=== PATIENT | male | born 1950 | race Caucasian/White ===

== ENCOUNTER 2017-09-03 11:53 | Inpatient (IN) | payer MEDICARE ==
[~2017-09-03] VITALS: Ht 177.8 cm; Wt 85.1 kg
[2017-09-03 14:00] VITALS: BP 134/80
[2017-09-03] MEDS ORDERED: PLEASE ENTER ALLERGIES MC SCH (15:00)
[2017-09-03] MEDS ORDERED: ACETAMINOPHEN 325 MG TABLET PO PRN (15:00)
[2017-09-03] MEDS ORDERED: MECLIZINE CHEWABLE 25 MG TAB PO PRN (15:00)
[2017-09-03] MEDS ORDERED: PLEASE ENTER HEIGHT AND WEIGHT MC SCH (15:00)
[2017-09-03 15:38] LABS: BASOPHILS # (AUTO) 0.08 x10^3/uL (0-0.1); BASOPHILS % (AUTO) 1 % (0-1); EOSINOPHILS # (AUTO) 0.11 x10^3/uL (0-0.4); EOSINOPHILS % (AUTO) 1 % (1-7); LYMPHOCYTES # (AUTO) 1.37 x10^3/uL (1-3.4); LYMPHOCYTES % (AUTO) 11 % (22-44); MD NO; MEAN CORPUSCULAR HEMOGLOBIN 31.6 pg (27.5-34.5); MEAN CORPUSCULAR HGB CONC 33.7 g/dL (33.2-36.2); MEAN CORPUSCULAR VOLUME 93.6 fL (81-97); MEAN PLATELET VOLUME 9.9 fL (7.4-10.4); MONOCYTES # (AUTO) 0.81 x10^3/uL (0.2-0.8); MONOCYTES % (AUTO) 6 % (2-9); NEUTROPHILS # (AUTO) 10.28 x10^3/uL (1.8-6.8); NEUTROPHILS % (AUTO) 81 % (42-75); PLATELET COUNT 238 x10^3/uL (130-400); RED BLOOD COUNT 5.02 x10^6/uL (4.38-5.82); RED CELL DISTRIBUTION WIDTH 12.9 % (9.4-14.8)
[2017-09-03 15:50] LABS: ALBUMIN 3.1 g/dL (3.4-5.0); ANION GAP 8 mmol/L (5-15); CALCIUM 8.7 mg/dL (8.5-10.1); CHLORIDE 106 mmol/L (98-107)
[2017-09-03 16:19] LABS: ALANINE AMINOTRANSFERASE 17 U/L (12-78); ALKALINE PHOSPHATASE 101 U/L (45-117); BILIRUBIN,TOTAL 0.4 mg/dL (0.2-1.0); CREATININE 0.89 mg/dL (0.7-1.3); FOLATE LEVEL 15.9 ng/mL (3.1-17.5); FREE T4 (FREE THYROXINE) 0.78 ng/dL (0.76-1.46); TOTAL PROTEIN 7.2 g/dL (6.4-8.2)
[2017-09-03 17:06] LABS: HEMOGLOBIN A1C 10.5 % (4.2-6.3)
[2017-09-03] MEDS: SODIUM CHLORIDE 0.9% 1,000 ML IV SCH (17:10)
[2017-09-03 19:49] VITALS: BP 114/70
[2017-09-03] MEDS: DOCUSATE 100 MG CAPSULE PO SCH (21:26)
[2017-09-03] MEDS: INSULIN LISPRO 100 UNITS/ML, PEN SQ-INSULIN SCH (21:26)
[2017-09-03] MEDS: ENOXAPARIN 40 MG/0.4 ML SQ SCH (21:26)
[2017-09-04 00:32] VITALS: BP 124/73
[2017-09-04 05:52] LABS: CULTURE INDICATED? YES; MICROSCOPIC INDICATED
[2017-09-04 07:35] VITALS: BP 136/77
[2017-09-04] MEDS: POLYETHYLENE GLYCOL 17 GM PACKET PO SCH (08:04)
[2017-09-04] MEDS: DOCUSATE 100 MG CAPSULE PO SCH ×2 (08:11→21:00)
[2017-09-04] MEDS: SODIUM CHLORIDE 0.9% 1,000 ML IV SCH (08:11)
[2017-09-04] MEDS: INSULIN LISPRO 100 UNITS/ML, PEN SQ-INSULIN SCH ×4 (08:11→21:00)
[2017-09-04 13:52] VITALS: BP 131/72
[2017-09-04 19:45] VITALS: BP 159/90
[2017-09-04] MEDS: ENOXAPARIN 40 MG/0.4 ML SQ SCH (20:59)
[2017-09-05 02:01] VITALS: BP 146/76
[2017-09-05 06:03] LABS: BASOPHILS # (AUTO) 0.03 x10^3/uL (0-0.1); BASOPHILS % (AUTO) 0 % (0-1); EOSINOPHILS # (AUTO) 0.57 x10^3/uL (0-0.4); EOSINOPHILS % (AUTO) 7 % (1-7); LYMPHOCYTES # (AUTO) 1.41 x10^3/uL (1-3.4); LYMPHOCYTES % (AUTO) 18 % (22-44); MD NO; MEAN CORPUSCULAR HEMOGLOBIN 31.1 pg (27.5-34.5); MEAN CORPUSCULAR HGB CONC 33.1 g/dL (33.2-36.2); MEAN CORPUSCULAR VOLUME 94.1 fL (81-97); MEAN PLATELET VOLUME 9.8 fL (7.4-10.4); MONOCYTES # (AUTO) 0.76 x10^3/uL (0.2-0.8); MONOCYTES % (AUTO) 10 % (2-9); NEUTROPHILS # (AUTO) 5.05 x10^3/uL (1.8-6.8); NEUTROPHILS % (AUTO) 65 % (42-75); PLATELET COUNT 240 x10^3/uL (130-400); RED BLOOD COUNT 4.87 x10^6/uL (4.38-5.82); RED CELL DISTRIBUTION WIDTH 13.3 % (9.4-14.8)
[2017-09-05 06:07] LABS: ANION GAP 9 mmol/L (5-15); CALCIUM 8.6 mg/dL (8.5-10.1); CHLORIDE 107 mmol/L (98-107)
[2017-09-05 06:09] LABS: CREATININE 0.87 mg/dL (0.7-1.3)
[2017-09-05 08:00] VITALS: BP 151/88
[2017-09-05] MEDS: POLYETHYLENE GLYCOL 17 GM PACKET PO SCH (09:00)
[2017-09-05] MEDS: DOCUSATE 100 MG CAPSULE PO SCH ×2 (09:00→21:02)
[2017-09-05] MEDS: INSULIN LISPRO 100 UNITS/ML, PEN SQ-INSULIN SCH ×4 (09:06→21:05)
[2017-09-05] MEDS: METOPROLOL TARTRATE 25 MG TABLET PO SCH ×2 (09:54→18:21)
[2017-09-05 12:46] VITALS: BP 136/79
[2017-09-05] MEDS: metFORMIN 500 MG TABLET PO SCH (16:23)
[2017-09-05 18:50] VITALS: BP 133/79
[2017-09-05] MEDS: ENOXAPARIN 40 MG/0.4 ML SQ SCH (21:05)
[2017-09-06 01:34] VITALS: BP 142/85
[2017-09-06] MEDS: METOPROLOL TARTRATE 25 MG TABLET PO SCH ×2 (06:25→17:44)
[2017-09-06 06:48] VITALS: BP 125/83
[2017-09-06] MEDS: INSULIN LISPRO 100 UNITS/ML, PEN SQ-INSULIN SCH ×4 (08:36→20:34)
[2017-09-06] MEDS: metFORMIN 500 MG TABLET PO SCH ×2 (08:37→17:41)
[2017-09-06] MEDS: POLYETHYLENE GLYCOL 17 GM PACKET PO SCH (08:41)
[2017-09-06] MEDS: DOCUSATE 100 MG CAPSULE PO SCH ×2 (08:41→20:32)
[2017-09-06 13:09] VITALS: BP 120/66
[2017-09-06 19:06] VITALS: BP 150/80
[2017-09-06] MEDS: ENOXAPARIN 40 MG/0.4 ML SQ SCH (20:34)
[2017-09-07 00:35] VITALS: BP 147/82
[2017-09-07] MEDS: METOPROLOL TARTRATE 25 MG TABLET PO SCH ×2 (06:02→17:09)
[2017-09-07 06:51] VITALS: BP 126/77
[2017-09-07] MEDS: DOCUSATE 100 MG CAPSULE PO SCH ×2 (07:34→20:42)
[2017-09-07] MEDS: POLYETHYLENE GLYCOL 17 GM PACKET PO SCH (07:35)
[2017-09-07] MEDS: metFORMIN 500 MG TABLET PO SCH ×2 (07:39→17:10)
[2017-09-07] MEDS: INSULIN LISPRO 100 UNITS/ML, PEN SQ-INSULIN SCH ×4 (07:40→21:14)
[2017-09-07] MEDS ORDERED: POLYETHYLENE GLYCOL 17 GM PACKET PO PRN (12:00)
[2017-09-07 13:33] VITALS: BP 117/67
[2017-09-07 20:10] VITALS: BP 130/67
[2017-09-07] MEDS: ENOXAPARIN 40 MG/0.4 ML SQ SCH (21:15)
[2017-09-08 01:34] VITALS: BP 113/63
[2017-09-08] MEDS: METOPROLOL TARTRATE 25 MG TABLET PO SCH ×2 (05:47→17:39)
[2017-09-08 06:38] VITALS: BP 108/71
[2017-09-08] MEDS: INSULIN LISPRO 100 UNITS/ML, PEN SQ-INSULIN SCH ×4 (08:35→20:29)
[2017-09-08] MEDS: metFORMIN 500 MG TABLET PO SCH ×2 (08:35→17:39)
[2017-09-08] MEDS: DOCUSATE 100 MG CAPSULE PO SCH ×2 (08:36→20:29)
[2017-09-08] MEDS ORDERED: FLU VACC QS2017-18 (36MOS+) UP/PF 0.5 ML IM-VACC ONE (10:00)
[2017-09-08 12:35] VITALS: BP 122/82
[2017-09-08] MEDS ORDERED: ACYC-114 PO (13:51)
[2017-09-08] MEDS ORDERED: METF500T4 PO (13:52)
[2017-09-08] MEDS ORDERED: MECL-76 PO (13:54)
[2017-09-08] MEDS ORDERED: SIMV20TA3 PO (13:56)
[2017-09-08] MEDS ORDERED: LISI-420 PO (13:56)
[2017-09-08] MEDS ORDERED: ASPI-650 PO (13:57)
[2017-09-08 19:25] VITALS: BP 113/85
[2017-09-08] MEDS: ENOXAPARIN 40 MG/0.4 ML SQ SCH (20:29)
[2017-09-09 01:39] VITALS: BP 153/85
[2017-09-09] MEDS: METOPROLOL TARTRATE 25 MG TABLET PO SCH ×2 (05:46→17:06)
[2017-09-09] MEDS: DOCUSATE 100 MG CAPSULE PO SCH (07:27)
[2017-09-09 07:30] VITALS: BP 129/74
[2017-09-09] MEDS: INSULIN LISPRO 100 UNITS/ML, PEN SQ-INSULIN SCH ×3 (07:35→16:00)
[2017-09-09] MEDS: metFORMIN 500 MG TABLET PO SCH ×2 (07:35→17:06)
[2017-09-09] MEDS ORDERED: METF1000 PO (14:16)
[2017-09-09] MEDS ORDERED: ASPI-650 PO (14:16)
[2017-09-09] MEDS ORDERED: MECL-85 PO (14:16)
[2017-09-09] MEDS ORDERED: SIMV20TA3 PO (14:16)
[2017-09-09] MEDS ORDERED: ACYC-114 PO (14:16)
[2017-09-09] MEDS ORDERED: METO25TA35 PO (14:16)
[2017-09-09] MEDS ORDERED: GLIP5TAB10 PO (14:16)
[2017-09-09] MEDS ORDERED: DOCU-131 PO (14:16)
[2017-09-09 16:40] VITALS: BP 137/80
== END 2017-09-09 17:49 | disposition home health service (06) | DRG 641 ==
LOC: 3NE 12:33
PROVIDERS: ADMIT Internal Medicine; ATTEND Internal Medicine
DX: R62.7 Adult failure to thrive (principal); E44.1 Mild protein-calorie malnutrition; J98.4 Other disorders of lung; E11.9 Type 2 diabetes mellitus without complications; R42 Dizziness and giddiness; Z79.84 Long term (current) use of oral hypoglycemic drugs; E87.6 Hypokalemia; K59.00 Constipation, unspecified; E78.5 Hyperlipidemia, unspecified; I10 Essential (primary) hypertension; Z79.82 Long term (current) use of aspirin; Z79.899 Other long term (current) drug therapy; Z82.49 Family history of ischemic heart disease and other diseases of the circulatory system; Z86.19 Personal history of other infectious and parasitic diseases; Z87.730 Personal history of (corrected) cleft lip and palate; Z98.2 Presence of cerebrospinal fluid drainage device; Z68.37 Body mass index [BMI] 37.0-37.9, adult
CPT/HCPCS: 36415; 71045; 80048; 80053; 81001; 82306; 82607; 82746; 82962; 83036; 84439; 84443; 85025; 87086; 90686; J1650; J1815; J7030

== ENCOUNTER 2017-11-20 15:08 | Inpatient (IN) | payer MEDICARE ==
[~2017-11-20] VITALS: Ht 175.3 cm; Wt 114.9 kg
[~2017-11-20 15:08] MED LIST: ACYC-114 PO; ASPI-650 PO; DOCU-131 PO; GLIP5TAB10 PO; LISI-420 PO; MECL-76 PO; MECL-85 PO; METF1000 PO; METF500T4 PO; METO25TA35 PO; SIMV20TA3 PO
[2017-11-20] MEDS ORDERED: TICAGRELOR 90 MG TABLET ONE (15:15)
[2017-11-20] MEDS ORDERED: FENTANYL PF 100 MCG/2ML ONE (15:15)
[2017-11-20] MEDS ORDERED: MIDAZOLAM 1 MG/ML, 5ML ONE (15:15)
[2017-11-20] MEDS ORDERED: LIDOCAINE 2%, 2ML ONE (15:16)
[2017-11-20] MEDS ORDERED: HEPARIN 1,000 UNITS/ML, 10ML ONE (15:16)
[2017-11-20] MEDS ORDERED: VERAPAMIL 2.5 MG/ML, 2ML ONE (15:16)
[2017-11-20] MEDS ORDERED: BIVALIRUDIN 250 MG ONE (15:16)
[2017-11-20] MEDS ORDERED: LIDOCAINE-MPF 2% ,5ML ONE (15:31)
[2017-11-20] MEDS ORDERED: SODIUM CHLORIDE 0.9% 1,000 ML IV SCH (16:12)
[2017-11-20] MEDS ORDERED: PHENYLEPHRINE 10 MG/ML ONE (16:24)
[2017-11-20] MEDS ORDERED: ACETAMINOPHEN 325 MG TABLET PO PRN (16:30)
[2017-11-20] MEDS ORDERED: ONDANSETRON 2MG/ML, 2ML IVPush PRN (16:30)
[2017-11-20] MEDS ORDERED: BISACODYL 5 MG EC TABLET PO PRN (16:30)
[2017-11-20] MEDS: ATORVASTATIN 80 MG TABLET PO SCH (20:59)
[2017-11-20] MEDS: TICAGRELOR 90 MG TABLET PO SCH (20:59)
[2017-11-21] VITALS (8 sets, daily range): BP systolic 63–124; BP diastolic 52–76
[2017-11-21 04:41] LABS: CHLORIDE 108 mmol/L (98-107)
[2017-11-21 04:45] LABS: ALBUMIN 3.1 g/dL (3.4-5.0); ANION GAP 9 mmol/L (5-15); CALCIUM 9.2 mg/dL (8.5-10.1); CREATININE 1.08 mg/dL (0.7-1.3)
[2017-11-21] MEDS: TICAGRELOR 90 MG TABLET PO SCH ×2 (08:46→19:59)
[2017-11-21] MEDS: ASPIRIN 81 MG TABLET EC PO SCH (08:46)
[2017-11-21] MEDS ORDERED: MECLIZINE CHEWABLE 25 MG TAB PO PRN (09:00)
[2017-11-21] MEDS: ACYCLOVIR 400 MG TABLET PO SCH (11:11)
[2017-11-21] MEDS ORDERED: SODIUM CHLORIDE 0.9%, 250ML IVBOLUS ONE (11:30)
[2017-11-21] MEDS ORDERED: SODIUM CHLORIDE 0.9% 1,000 ML IV SCH (15:00)
[2017-11-21] MEDS: ATORVASTATIN 80 MG TABLET PO SCH (19:59)
[2017-11-22] VITALS (9 sets, daily range): BP systolic 68–127; BP diastolic 44–75
[2017-11-22] MEDS: TICAGRELOR 90 MG TABLET PO SCH ×2 (09:13→20:07)
[2017-11-22] MEDS: ACYCLOVIR 400 MG TABLET PO SCH (09:13)
[2017-11-22] MEDS: ASPIRIN 81 MG TABLET EC PO SCH (09:13)
[2017-11-22] MEDS: ATORVASTATIN 80 MG TABLET PO SCH (20:07)
[2017-11-23 02:06] VITALS: BP 118/61
[2017-11-23 05:49] LABS: ANION GAP 8 mmol/L (5-15); CALCIUM 8.5 mg/dL (8.5-10.1); CHLORIDE 109 mmol/L (98-107)
[2017-11-23 05:52] LABS: HEMOGLOBIN A1C 7.8 % (4.2-6.3)
[2017-11-23 07:50] VITALS: BP 124/76
[2017-11-23] MEDS: ACYCLOVIR 400 MG TABLET PO SCH (08:22)
[2017-11-23] MEDS: TICAGRELOR 90 MG TABLET PO SCH ×2 (08:22→22:38)
[2017-11-23] MEDS: ASPIRIN 81 MG TABLET EC PO SCH (08:22)
[2017-11-23] MEDS ORDERED: HEPARIN 25,000 UNITS/500ML PMX 500 ML IV PRN (09:00)
[2017-11-23] MEDS: [UNRECOGNIZED DRUG - REMARK] MC SCH ×2 (09:49→17:30)
[2017-11-23] MEDS ORDERED: HEPARIN 5,000 UNITS/ML, 1ML IV ONE (10:00)
[2017-11-23] MEDS: METOPROLOL TARTRATE 25 MG TABLET PO SCH ×2 (10:06→22:38)
[2017-11-23] MEDS: HEPARIN 25,000 UNITS/500ML PMX 500 ML IV PRN (10:36)
[2017-11-23 14:24] VITALS: BP 108/70
[2017-11-23] MEDS: HEPARIN 5,000 UNITS/ML, 1ML IV PRN (18:04)
[2017-11-23 20:35] VITALS: BP 130/83
[2017-11-23 20:36] VITALS: BP 120/57
[2017-11-23 20:37] VITALS: BP 96/66
[2017-11-23] MEDS: ATORVASTATIN 80 MG TABLET PO SCH (22:38)
[2017-11-24] VITALS (7 sets, daily range): BP systolic 98–163; BP diastolic 65–80
[2017-11-24] MEDS: METOPROLOL TARTRATE 25 MG TABLET PO SCH ×2 (06:24→17:01)
[2017-11-24] MEDS: HEPARIN 25,000 UNITS/500ML PMX 500 ML IV PRN (08:31)
[2017-11-24] MEDS: HEPARIN 5,000 UNITS/ML, 1ML IV PRN ×2 (08:32→21:44)
[2017-11-24] MEDS: ASPIRIN 81 MG TABLET EC PO SCH (08:32)
[2017-11-24] MEDS: ACYCLOVIR 400 MG TABLET PO SCH (08:32)
[2017-11-24] MEDS: TICAGRELOR 90 MG TABLET PO SCH ×2 (08:32→20:24)
[2017-11-24] MEDS: ATORVASTATIN 80 MG TABLET PO SCH (20:24)
[2017-11-25] VITALS (7 sets, daily range): BP systolic 114–174; BP diastolic 68–115
[2017-11-25] MEDS: HEPARIN 25,000 UNITS/500ML PMX 500 ML IV PRN (01:11)
[2017-11-25] MEDS: METOPROLOL TARTRATE 25 MG TABLET PO SCH (07:25)
[2017-11-25] MEDS: ASPIRIN 81 MG TABLET EC PO SCH (09:10)
[2017-11-25] MEDS: ACYCLOVIR 400 MG TABLET PO SCH (09:10)
[2017-11-25] MEDS ORDERED: PRASUGREL 10 MG TABLET PO SCH (09:30)
[2017-11-25] MEDS: METOPROLOL TARTRATE 50 MG TABLET PO SCH (18:09)
[2017-11-25] MEDS: metFORMIN 500 MG TABLET PO SCH (18:09)
[2017-11-25] MEDS ORDERED: METOPROLOL 1 MG/ML, 5ML IVPush ONE (18:30)
[2017-11-25] MEDS: APIXABAN 5 MG TABLET PO SCH (22:07)
[2017-11-25] MEDS: ATORVASTATIN 80 MG TABLET PO SCH (22:07)
[2017-11-26 00:12] VITALS: BP 110/68
[2017-11-26 05:23] LABS: BASOPHILS # (AUTO) 0.03 x10^3/uL (0-0.1); BASOPHILS % (AUTO) 0 % (0-1); EOSINOPHILS # (AUTO) 0.79 x10^3/uL (0-0.4); EOSINOPHILS % (AUTO) 7 % (1-7); LYMPHOCYTES % (AUTO) 15 % (22-44); MD NO; MEAN CORPUSCULAR HEMOGLOBIN 31.4 pg (27.5-34.5); MEAN CORPUSCULAR HGB CONC 33.5 g/dL (33.2-36.2); MEAN CORPUSCULAR VOLUME 93.9 fL (81-97); MEAN PLATELET VOLUME 9.3 fL (7.4-10.4); MONOCYTES # (AUTO) 1.14 x10^3/uL (0.2-0.8); MONOCYTES % (AUTO) 11 % (2-9); NEUTROPHILS # (AUTO) 7.18 x10^3/uL (1.8-6.8); NEUTROPHILS % (AUTO) 67 % (42-75); PLATELET COUNT 303 x10^3/uL (130-400); RED BLOOD COUNT 4.65 x10^6/uL (4.38-5.82); RED CELL DISTRIBUTION WIDTH 13.8 % (9.4-14.8)
[2017-11-26 05:34] LABS: ANION GAP 9 mmol/L (5-15); CHLORIDE 108 mmol/L (98-107)
[2017-11-26 05:41] LABS: CREATININE 0.84 mg/dL (0.7-1.3)
[2017-11-26 06:15] VITALS: BP_SYST 106; BP_SYST 98; BP_DIAS 65
[2017-11-26] MEDS: METOPROLOL TARTRATE 50 MG TABLET PO SCH (06:22)
[2017-11-26 07:21] VITALS: BP 115/67
[2017-11-26] MEDS: metFORMIN 500 MG TABLET PO SCH (07:28)
[2017-11-26] MEDS: ACYCLOVIR 400 MG TABLET PO SCH (07:28)
[2017-11-26] MEDS: APIXABAN 5 MG TABLET PO SCH (07:28)
[2017-11-26] MEDS ORDERED: CLOPIDOGREL 75 MG TABLET PO SCH (09:00)
[2017-11-26] MEDS ORDERED: CLOP75TA PO (09:37)
[2017-11-26] MEDS ORDERED: APIX5TAB PO (09:37)
[2017-11-26] MEDS ORDERED: METO50TA82 PO (09:37)
[2017-11-26] MEDS ORDERED: ATOR-2 PO (09:37)
[2017-11-26 12:37] LABS: CLOSTRIDIUM DIFFICILE ANTIGEN NEGATIVE; CLOSTRIDIUM DIFFICILE TOXIN NEGATIVE (Negative)
[2017-11-26 14:00] VITALS: BP 107/73
== END 2017-11-26 16:33 | disposition home or self-care (01) | DRG 247 ==
LOC: ED 15:22 → EDIP 15:27 → CCU 16:16 → 5SO 11-21 12:20 → DCLOUNGE 11-26 16:33
PROVIDERS: ADMIT Internal Medicine Cardiovascular Disease; ATTEND Internal Medicine Cardiovascular Disease
PROC: 027034Z Dilation of Coronary Artery, One Artery with Drug-eluting Intraluminal Device, Percutaneous Approach (ICD-10-PCS; principal; 2017-11-20)
PROC: 4A023N7 Measurement of Cardiac Sampling and Pressure, Left Heart, Percutaneous Approach (ICD-10-PCS; 2017-11-20)
PROC: B2111ZZ Fluoroscopy of Multiple Coronary Arteries using Low Osmolar Contrast (ICD-10-PCS; 2017-11-20)
PROC: B2151ZZ Fluoroscopy of Left Heart using Low Osmolar Contrast (ICD-10-PCS; 2017-11-20)
DX: I21.19 ST elevation (STEMI) myocardial infarction involving other coronary artery of inferior wall (principal); D68.69 Other thrombophilia; I48.0 Paroxysmal atrial fibrillation; E11.9 Type 2 diabetes mellitus without complications; E66.9 Obesity, unspecified; I45.5 Other specified heart block; E78.5 Hyperlipidemia, unspecified; I10 Essential (primary) hypertension; I25.2 Old myocardial infarction; Z87.891 Personal history of nicotine dependence; Z98.2 Presence of cerebrospinal fluid drainage device; Z68.37 Body mass index [BMI] 37.0-37.9, adult
CPT/HCPCS: 36415; 71045; 80047; 80048; 82040; 83036; 83880; 84484; 85014; 85018; 85025; 85520; 87081; 87324; 93005; 93306; 93458; 99156; 99157; 99285; C1760; C1769; C1894; J0583; J1644; J2250; J2405; J3010; J3490; C1725; C1874; C1887; J2370; J7030; J7050; Q9967

== ENCOUNTER 2018-07-19 14:45 | Inpatient (IN) | payer MEDICARE ==
[~2018-07-19] VITALS: Ht 170.2 cm; Wt 116.9 kg
[~2018-07-19 14:45] MED LIST changes: +APIX5TAB PO; +ATOR-2 PO; +CLOP75TA PO; +METF500T17 PO; -METF500T4 PO; +METO50TA82 PO
[2018-07-19] MEDS ORDERED: SODIUM CHLORIDE 0.9% 1,000 ML IV ONE (14:54)
[2018-07-19] MEDS ORDERED: METOCLOPRAMIDE 5 MG/ML, 2ML IVPush ONE (15:00)
[2018-07-19] MEDS ORDERED: SODIUM CHLORIDE FLUSH 10ML SYR IVF ONE (15:00)
[2018-07-19 15:13] LABS: PH, VENOUS 7.427 pH (7.320-7.420)
[2018-07-19 15:18] LABS: BASOPHILS # (AUTO) 0.04 x10^3/uL (0-0.1); BASOPHILS % (AUTO) 0 % (0-1); EOSINOPHILS # (AUTO) 0.19 x10^3/uL (0-0.4); EOSINOPHILS % (AUTO) 2 % (1-7); LYMPHOCYTES # (AUTO) 1.18 x10^3/uL (1-3.4); LYMPHOCYTES % (AUTO) 10 % (22-44); MD NO; MEAN CORPUSCULAR HEMOGLOBIN 31.5 pg (27.5-34.5); MEAN CORPUSCULAR HGB CONC 33.5 g/dL (33.2-36.2); MEAN CORPUSCULAR VOLUME 93.9 fL (81-97); MEAN PLATELET VOLUME 10.1 fL (7.4-10.4); MONOCYTES # (AUTO) 0.75 x10^3/uL (0.2-0.8); MONOCYTES % (AUTO) 7 % (2-9); NEUTROPHILS # (AUTO) 9.43 x10^3/uL (1.8-6.8); NEUTROPHILS % (AUTO) 81 % (42-75); PLATELET COUNT 245 x10^3/uL (130-400); RED CELL DISTRIBUTION WIDTH 13.4 % (9.4-14.8)
[2018-07-19 15:25] LABS: ALBUMIN 3.1 g/dL (3.4-5.0); ANION GAP 9 mmol/L (5-15); CALCIUM 8.7 mg/dL (8.5-10.1); CHLORIDE 107 mmol/L (98-107)
[2018-07-19 15:29] LABS: ALANINE AMINOTRANSFERASE 18 U/L (12-78); ALKALINE PHOSPHATASE 104 U/L (45-117); BILIRUBIN,TOTAL 0.6 mg/dL (0.2-1.0); CREATININE 0.94 mg/dL (0.7-1.3)
[2018-07-19] MEDS ORDERED: MECLIZINE CHEWABLE 25 MG TAB PO ONE ×2 (15:30→21:00)
[2018-07-19 15:44] LABS: ACETONE, SERUM Trace (10mg/dL) mg/dL (Negative)
[2018-07-19] MEDS ORDERED: MECLIZINE CHEWABLE 25 MG TAB ONE (16:10)
[2018-07-19] MEDS ORDERED: METOCLOPRAMIDE 5 MG/ML, 2ML ONE (16:10)
[2018-07-19] MEDS ORDERED: INSULIN REGULAR 100 UNITS/ML, 3ML VIAL ONE (16:11)
[2018-07-19] MEDS ORDERED: INSULIN REGULAR 100 UNITS/ML, 3ML VIAL SQ-INSULIN ONE (16:30)
[2018-07-19 16:51] LABS: HEMOGLOBIN A1C 8.5 % (4.2-6.3)
[2018-07-19] MEDS ORDERED: ACETAMINOPHEN 325 MG TABLET PO PRN (17:00)
[2018-07-19] MEDS ORDERED: ONDANSETRON 2MG/ML, 2ML IVPush PRN (17:00)
[2018-07-19] MEDS ORDERED: hydrALAzine 20 MG/ML, 1ML IVPush PRN (17:00)
[2018-07-19] MEDS ORDERED: METOCLOPRAMIDE 5 MG/ML, 2ML IVPush PRN (17:00)
[2018-07-19] MEDS ORDERED: LABETALOL 5MG/ML, 20ML IVPush PRN (17:00)
[2018-07-19 17:28] VITALS: BP 135/76
[2018-07-19 17:28] LABS: THYROID STIMULATING HORMONE 4.81 mIU/L (0.358-3.740)
[2018-07-19] MEDS ORDERED: NS + 20MEQ KCL 1,000 ML IV SCH (18:00)
[2018-07-19 23:43] LABS: MICROSCOPIC NOT IND
[2018-07-19 23:44] LABS: CULTURE INDICATED? NO
[2018-07-20] VITALS (13 sets, daily range): BP systolic 64–128; BP diastolic 48–79
[2018-07-20 05:28] LABS: BASOPHILS % (AUTO) 0 % (0-1); EOSINOPHILS % (AUTO) 1 % (1-7); LYMPHOCYTES # (AUTO) 1.53 x10^3/uL (1-3.4); LYMPHOCYTES % (AUTO) 16 % (22-44); MD NO; MEAN CORPUSCULAR HEMOGLOBIN 31.6 pg (27.5-34.5); MEAN CORPUSCULAR VOLUME 95.7 fL (81-97); MEAN PLATELET VOLUME 10.4 fL (7.4-10.4); MONOCYTES # (AUTO) 0.87 x10^3/uL (0.2-0.8); MONOCYTES % (AUTO) 9 % (2-9); NEUTROPHILS % (AUTO) 74 % (42-75); PLATELET COUNT 238 x10^3/uL (130-400); RED BLOOD COUNT 4.26 x10^6/uL (4.38-5.82); RED CELL DISTRIBUTION WIDTH 13.6 % (9.4-14.8)
[2018-07-20 05:41] LABS: ANION GAP 8 mmol/L (5-15); CHLORIDE 110 mmol/L (98-107)
[2018-07-20 05:44] LABS: CALCIUM 8.9 mg/dL (8.5-10.1); CREATININE 0.78 mg/dL (0.7-1.3)
[2018-07-20] MEDS: METOPROLOL TARTRATE 50 MG TABLET PO SCH ×2 (06:30→17:08)
[2018-07-20] MEDS: INSULIN LISPRO 100 UNITS/ML, PEN SQ-INSULIN SCH ×4 (07:00→22:41)
[2018-07-20] MEDS ORDERED: GLIPIZIDE 5 MG PO SCH (07:30)
[2018-07-20] MEDS ORDERED: metFORMIN 500 MG TABLET PO SCH (08:00)
[2018-07-20] MEDS: LEVOTHYROXINE 25 MCG TABLET PO SCH (08:41)
[2018-07-20] MEDS: CLOPIDOGREL 75 MG TABLET PO SCH (08:41)
[2018-07-20] MEDS: APIXABAN 5 MG TABLET PO SCH ×2 (08:41→22:40)
[2018-07-20] MEDS: ACYCLOVIR 400 MG TABLET PO SCH (08:41)
[2018-07-20] MEDS: MECLIZINE CHEWABLE 25 MG TAB PO PRN ×2 (17:08→22:41)
[2018-07-20] MEDS ORDERED: ATORVASTATIN 80 MG TABLET PO SCH (21:00)
[2018-07-21] VITALS (12 sets, daily range): BP systolic 93–144; BP diastolic 53–84
[2018-07-21] MEDS: LEVOTHYROXINE 25 MCG TABLET PO SCH (06:44)
[2018-07-21] MEDS: METOPROLOL TARTRATE 50 MG TABLET PO SCH (06:44)
[2018-07-21] MEDS: INSULIN LISPRO 100 UNITS/ML, PEN SQ-INSULIN SCH ×2 (07:12→11:36)
[2018-07-21] MEDS: CLOPIDOGREL 75 MG TABLET PO SCH (08:45)
[2018-07-21] MEDS: APIXABAN 5 MG TABLET PO SCH (08:45)
[2018-07-21] MEDS: ACYCLOVIR 400 MG TABLET PO SCH (08:45)
[2018-07-21] MEDS ORDERED: METO50TA82 PO (13:24)
[2018-07-21] MEDS ORDERED: MECL-85 PO (13:24)
[2018-07-21] MEDS ORDERED: METOPROLOL TARTRATE 25 MG TABLET PO SCH (18:00)
== END 2018-07-21 16:50 | disposition home or self-care (01) | DRG 312 ==
LOC: ED 15:37 → EDIP 16:10 → 4EST 17:22 → DCLOUNGE 07-21 16:34
PROVIDERS: ADMIT Hospitalist; ATTEND Hospitalist
DX: I95.1 Orthostatic hypotension (principal); D68.69 Other thrombophilia; H81.12 Benign paroxysmal vertigo, left ear; D72.829 Elevated white blood cell count, unspecified; E11.65 Type 2 diabetes mellitus with hyperglycemia; E66.01 Morbid (severe) obesity due to excess calories; E78.5 Hyperlipidemia, unspecified; I10 Essential (primary) hypertension; I25.10 Atherosclerotic heart disease of native coronary artery without angina pectoris; I25.2 Old myocardial infarction; I48.0 Paroxysmal atrial fibrillation; Z66 Do not resuscitate; Z79.01 Long term (current) use of anticoagulants; Z79.84 Long term (current) use of oral hypoglycemic drugs; Z82.49 Family history of ischemic heart disease and other diseases of the circulatory system; Z87.730 Personal history of (corrected) cleft lip and palate; Z91.14 Patient's other noncompliance with medication regimen; Z95.5 Presence of coronary angioplasty implant and graft; Z98.2 Presence of cerebrospinal fluid drainage device
CPT/HCPCS: 36415; 70450; 80048; 80053; 81003; 82010; 82803; 82962; 83036; 83690; 83735; 84100; 84443; 85025; 93005; 93306; 99285; G0378; J2405; J3480; J1815; J2765; J7030